=== PATIENT | male | born 1970 | race Two or more races ===

== ENCOUNTER 2024-04-27 10:42 | Emergency (ER) | payer SELFPAY ==
[2024-04-27] MEDS ORDERED: Ondansetron 8 MG in Sodium Chloride 0.9% 50 ML IV ONE (11:30)
[2024-04-27 11:38] LABS: BASOPHILS ABSOLUTE AUTO 0.1 K/mm3 (0.0-0.2); BASOPHILS PERCENT AUTO 0.4 % (0.0-1.0); EOSINOPHILS ABSOLUTE AUTO 0.3 K/mm3 (0.0-0.4); EOSINOPHILS PERCENT AUTO 2.6 % (0.0-6.0); HEMATOCRIT 42.8 % (42.0-52.0); HEMOGLOBIN 14.2 gm/dl (14.0-18.0); IMMATURE GRAN ABSOLUTE AUTO 0.06 K/mm3 (0.00-0.05); IMMATURE GRAN PERCENT AUTO 0.5 % (0.0-0.4); LYMPHOCYTES ABSOLUTE AUTO 1.4 K/mm3 (1.0-4.8); LYMPHOCYTES PERCENT AUTO 12.4 % (24.0-44.0); MEAN CORPUSCULAR HEMOGLOBIN 26.4 pg (28.0-32.0); MEAN CORPUSCULAR HGB CONC 33.2 g/dl (32.0-36.0); MEAN CORPUSCULAR VOLUME 79.6 fl (83.0-99.0); MEAN PLATELET VOLUME 9.4 fl (9.4-12.4); MONOCYTES ABSOLUTE AUTO 0.9 K/mm3 (0.0-0.8); MONOCYTES PERCENT AUTO 7.8 % (0.0-8.0); NEUTROPHILS ABSOLUTE AUTO 8.8 K/mm3 (1.8-7.7); NEUTROPHILS PERCENT AUTO 76.3 % (41.0-71.0); PLATELET COUNT,PLT 320 K/mm3 (150-400); RED BLOOD CELL COUNT 5.38 M/mm3 (4.52-5.90); WHITE BLOOD CELL COUNT,WBC 11.52 K/mm3 (3.9-11.3)
[2024-04-27] MEDS: Ondansetron 4 MG/2 ML SDV IVPUSH ONE (11:49)
[2024-04-27] MEDS: Sodium Chloride 0.9% 1,000 ML IV SCH (11:49)
[2024-04-27] MEDS: fentaNYL 100 MCG/2 ML SDV IVPUSH ONE (11:49)
[2024-04-27] MEDS: Pantoprazole 40 MG Vial IVPUSH ONE (11:49)
[2024-04-27 11:52] LABS: A/G RATIO 1.2 (1-2); ALBUMIN 3.8 g/dl (3.4-5.0); ANION GAP 12.2 (5-15); BILIRUBIN TOTAL 0.3 mg/dL (0.2-1.0); C-REACTIVE PROTEIN 0.43 mg/dL (<0.30); CALCIUM 8.4 mg/dL (8.5-10.1); EST CRCL DRUG DOSING (CG) 87.19 mL/min; POTASSIUM,K 4.2 mEq/L (3.5-5.1); PROTEIN TOTAL,TP 7.1 g/dl (6.4-8.2)
[2024-04-27] MEDS: Iopamidol 612 MG/ML 100 ML Bottle IVPUSH ONE (12:12)
[2024-04-27] MEDS: Sodium Chloride 0.9% 10 ML Syringe FLUSH ONE (12:12)
[2024-04-27] MEDS: droPERidol 5 MG/2 ML SDV IVPUSH ONE (13:25)
[2024-04-27] MEDS: Haloperidol Lactate 5 MG/ML SDV IVPUSH ONE (13:27)
== END 2024-04-27 12:00 | disposition home or self-care (01) ==
LOC: JD.ED 10:42
DX: R10.30 Lower abdominal pain, unspecified (principal); R11.2 Nausea with vomiting, unspecified; I10 Essential (primary) hypertension; Z88.8 Allergy status to other drugs, medicaments and biological substances; Z79.899 Other long term (current) drug therapy
CPT/HCPCS: 36415; 74177; 80053; 83605; 83690; 85025; 86140; 96374; 96375; 99284; J1630; J2405; J2470; J3010; J7030; Q9967

== ENCOUNTER 2024-05-09 11:04 | Emergency (ER) | payer SELFPAY ==
[2024-05-09] MEDS: Acetaminophen 325 MG Tab PO ONE (12:22)
== END 2024-05-09 13:29 | disposition home or self-care (01) ==
LOC: JD.ED 11:04
DX: M25.511 Pain in right shoulder (principal); I10 Essential (primary) hypertension; Z88.6 Allergy status to analgesic agent; Z79.899 Other long term (current) drug therapy; W01.0XXA Fall on same level from slipping, tripping and stumbling without subsequent striking against object, initial encounter; Y93.89 Activity, other specified
CPT/HCPCS: 73030; 99283; A9270

== ENCOUNTER 2024-07-02 08:23 | Day surgery (SDC) | payer OTHER ==
[~2024-07-02 08:23] MED LIST: Dexamethasone 4 MG/ML 5 ML MDV ONE; HYDROmorphone 0.5 MG/0.5 ML Syringe IVPUSH PRN; Lidocaine 1% 5 ML VIAL ONE; Midazolam 1 MG/ML 2 ML SDV ONE; Ondansetron 4 MG/2 ML SDV IVPUSH PRN; Pregabalin 25 MG Cap PO ONE; Propofol 200 MG/20 ML SDV ONE; Rocuronium 50 MG/5 ML Vial ONE; Ropivacaine 0.5% 5 MG/ML 30 ML SDV ONE; Sodium Chloride 0.9% 10 ML Syringe FLUSH PRN; Sodium Chloride 0.9% 10 ML Syringe FLUSH SCH; ceFAZolin 2 GM Vial ONE; fentaNYL 100 MCG/2 ML SDV IVPUSH PRN; fentaNYL 100 MCG/2 ML SDV ONE; oxyCODONE ER 10 MG TAB.ER PO ONE; propofoL 500 MG/50 ML 50 ML ONE
[2024-07-02] MEDS: Acetaminophen 325 MG Tab PO ONE ×2 (09:19→16:02)
[2024-07-02] MEDS: Lactated Ringers 1,000 ML IV SCH (09:20)
[2024-07-02] MEDS: oxyCODONE ER 10 MG TAB.ER PO ONE (09:21)
[2024-07-02] MEDS: Pregabalin 25 MG Cap PO ONE (09:21)
[2024-07-02] MEDS ORDERED: ceFAZolin 2 GM Vial ONE (09:51)
[2024-07-02] MEDS ORDERED: Esmolol 100 MG/10 ML SDV ONE (09:54)
[2024-07-02] MEDS ORDERED: propofoL 500 MG/50 ML 50 ML ONE ×3 (10:03→10:22)
[2024-07-02] MEDS ORDERED: Rocuronium 50 MG/5 ML Vial ONE ×3 (10:04→11:16)
[2024-07-02] MEDS ORDERED: Lactated Ringers 1,000 ML IV ONE ×2 (10:15→12:00)
[2024-07-02] MEDS ORDERED: Labetalol 100 MG/20 ML MDV ONE (10:20)
[2024-07-02] MEDS: Tranexamic Acid 1,000 MG/10 ML Vial ONE (10:25)
[2024-07-02] MEDS: VANCOmycin 1 GM SDV ONE (10:25)
[2024-07-02] MEDS ORDERED: fentaNYL 100 MCG/2 ML SDV ONE ×2 (10:26→10:37)
[2024-07-02] MEDS ORDERED: hydrALAZINE 20 MG/ML SDV ONE (10:55)
[2024-07-02] MEDS ORDERED: Midazolam 1 MG/ML 2 ML SDV ONE (11:04)
[2024-07-02] MEDS ORDERED: Propofol 500 MG/50 ML SDV ONE ×2 (11:30)
[2024-07-02] MEDS ORDERED: Sugammadex Sodium 200 MG/2 ML VIAL IV ONE (11:36)
[2024-07-02] MEDS: oxyCODONE 5 MG Tab PO PRN (13:15)
[2024-07-02] MEDS ORDERED: dexmedeTOMIDine HCl 200 MCG/2 ML SDV ONE (14:01)
[2024-07-02] MEDS ORDERED: Meperidine 50 MG/ML Vial IVPUSH ONE (14:30)
[2024-07-02] MEDS ORDERED: Meperidine 50 MG/ML Vial IVPUSH PRN (14:48)
[2024-07-02] MEDS: oxyCODONE 5 MG Tab PO ONE (16:02)
== END 2024-07-02 16:18 | disposition home or self-care (01) ==
LOC: JD.SDS 08:23
PROVIDERS: ATTEND Orthopaedic Surgery
DX: M19.011 Primary osteoarthritis, right shoulder (principal); M25.311 Other instability, right shoulder; I10 Essential (primary) hypertension; Z88.8 Allergy status to other drugs, medicaments and biological substances; Z79.899 Other long term (current) drug therapy
CPT/HCPCS: 01638; 64415; 76000; 76000-26; 97110-GP; 97161-GP; 97530-GP; A9270-GY; C1713; C1769; C1776; J0360; J0690; J1100; J1596; J1805; J1920; J2003; J2250; J2704; J2795; J3010; J3490; J7120

== ENCOUNTER 2024-07-02 17:57 | Emergency (ER) | payer OTHER ==
[2024-07-02] MEDS: HYDROmorphone 0.5 MG/0.5 ML Syringe IVPUSH ONE (18:18)
[2024-07-02] MEDS: oxyCODONE 5 MG Tab PO ONE (19:41)
== END 2024-07-02 20:00 | disposition home or self-care (01) ==
LOC: JD.ED 17:57
DX: G89.18 Other acute postprocedural pain (principal); M25.511 Pain in right shoulder; I10 Essential (primary) hypertension; Z88.6 Allergy status to analgesic agent; Z79.899 Other long term (current) drug therapy
CPT/HCPCS: 73030; 96374; 96375; 99284; A9270; J3360

== ENCOUNTER 2024-07-03 07:08 | Emergency (ER) | payer OTHER ==
[2024-07-03] MEDS: Sodium Chloride 0.9% 10 ML Syringe FLUSH PRN (08:27)
[2024-07-03] MEDS: HYDROmorphone 0.5 MG/0.5 ML Syringe IVPUSH ONE ×4 (08:27→15:13)
[2024-07-03] MEDS: diphenhydrAMINE 50 MG/ML SDV IVPUSH ONE (10:08)
== END 2024-07-03 15:20 | disposition home or self-care (01) ==
LOC: JD.ED 07:08
DX: G89.18 Other acute postprocedural pain (principal); M25.511 Pain in right shoulder; I10 Essential (primary) hypertension; Z88.0 Allergy status to penicillin; Z79.899 Other long term (current) drug therapy
CPT/HCPCS: 96374; 96375; 96376; 99283-25; 99284; J1200; J3360

== ENCOUNTER 2024-12-12 22:52 | Emergency (ER) | payer OTHER ==
[2024-12-12] MEDS: Acetaminophen/HYDROcodone 325-5 MG Tab PO ONE (23:25)
[2024-12-12 23:38] LABS: BASOPHILS ABSOLUTE AUTO 0.1 K/mm3 (0.0-0.2); BASOPHILS PERCENT AUTO 0.4 % (0.0-1.0); EOSINOPHILS ABSOLUTE AUTO 0.4 K/mm3 (0.0-0.4); EOSINOPHILS PERCENT AUTO 3.5 % (0.0-6.0); IMMATURE GRAN ABSOLUTE AUTO 0.05 K/mm3 (0.00-0.05); IMMATURE GRAN PERCENT AUTO 0.4 % (0.0-0.4); LYMPHOCYTES ABSOLUTE AUTO 2.6 K/mm3 (1.0-4.8); LYMPHOCYTES PERCENT AUTO 21.1 % (24.0-44.0); MEAN PLATELET VOLUME 8.9 fl (9.4-12.4); MONOCYTES ABSOLUTE AUTO 1.1 K/mm3 (0.0-0.8); MONOCYTES PERCENT AUTO 8.6 % (0.0-8.0); NEUTROPHILS ABSOLUTE AUTO 8.3 K/mm3 (1.8-7.7); NEUTROPHILS PERCENT AUTO 66.0 % (41.0-71.0); NRBC ABSOLUTE 0.00 (0.00-0.02); NRBC PERCENT 0.0 % (0.0-0.2); PLATELET COUNT,PLT 345 K/mm3 (150-400); RED BLOOD CELL COUNT 4.98 M/mm3 (4.52-5.90); WHITE BLOOD CELL COUNT,WBC 12.52 K/mm3 (3.9-11.3)
[2024-12-13 00:03] LABS: A/G RATIO 1.1 (1-2); ALANINE AMINOTRANSFERASE,ALT 30.0 U/L (16-63); ASPARTATE AMNIOTRANSFERASE,AST 16.0 U/L (15-37); BILIRUBIN TOTAL 0.2 mg/dL (0.2-1.0); BLOOD UREA NITROGEN,BUN 18.0 mg/dL (7-18); CARBON DIOXIDE,CO2 29.0 mEq/L (21-32); CHLORIDE,CL 106.0 mEq/L (98-107); CREATININE 1.0 mg/dL (0.7-1.3); EST CRCL DRUG DOSING (CG) 89.94 mL/min; ESTIMATED GFR 89.0 mL/min (>60); GLUCOSE RANDOM 95.0 mg/dL (70-99); POTASSIUM,K 3.9 mEq/L (3.5-5.1); PROTEIN TOTAL,TP 6.6 g/dl (6.4-8.2); SODIUM,NA 140.0 mEq/L (136-145)
== END 2024-12-13 00:28 | disposition critical access hospital (66) ==
LOC: JD.ED 22:52
DX: M10.9 Gout, unspecified (principal); I10 Essential (primary) hypertension; Z88.8 Allergy status to other drugs, medicaments and biological substances; Z79.899 Other long term (current) drug therapy; Z86.16 Personal history of COVID-19
CPT/HCPCS: 36415; 73660; 80053; 84550; 85025; 85652; 86140; 99283; A9270; J7512